=== PATIENT | female | born 1970 | race Caucasian/White ===

== ENCOUNTER 2021-01-03 22:57 | Emergency (ER) | payer BC, OTHER ==
[2021-01-03] MEDS ORDERED: morphine INJ 10 MG/ML 1ML (SYR OR VIAL) IM STA (23:30)
[2021-01-03] MEDS ORDERED: ONDANSETRON 4 MG (ZOFRAN) ORAL DISSOLVE TAB PO STA (23:30)
--- NOTE | 2021-01-03 23:57 | ED Cough/URI ---
General Chief Complaint: Cough/Cold/Flu Symptoms Stated Complaint: HEADACHE,SOA,COUGH,BODY ACHES Nursing Triage Note: Pt presents with a cough, fever, generalized body aches that started last Saturday. Pt states she was swabbed for Covid and it was negative. Pt was put on Zithromax and a steroid on and states she has finished both prescriptions and doesn't feel any better Source: patient History of Present Illness Date Seen by Provider: Jan 03, 2021 Time Seen by Provider: 23:15 Initial Comments Patient is a 50-year-old non-smoker presents with cough, fever, generalized body aches that started 1 week ago while [place] after close household exposure to Covid. Patient w was evaluated 5 days ago and had negative Covid test performed. She was placed on prednisone and Z-Pedro without improvement. Patient took pseudoephedrine this morning with some improvement. Patient reports persistent symptoms, dull throbbing headache, nausea with diarrhea. Denies chest pain palpitations or shortness of breath. Denies loss of taste or smell. No dizziness or lightheadedness. No other acute symptoms or complaints. Timing/Duration: week, changing over time Severity/Quality: dry cough Prior Episodes/Possible Cause: other Modifying Factors: Improves With Coughing, Improves With Lying Down Associated Symptoms: headache, muscle aches, nasal drainage, other Allergies and Home Medications Allergies Coded Allergies: No Known Drug Allergies (Unverified , 01/03/21) Patient Home Medication List Home Medication List Reviewed: Yes Review of Systems Review of Systems Constitutional: see HPI EENTM: see HPI Respiratory: see HPI Cardiovascular: see HPI Gastrointestinal: see HPI Genitourinary: see HPI Musculoskeletal: see HPI Skin: see HPI Psychiatric/Neurological: See HPI Hematologic/Lymphatic: See HPI Immunological/Allergic: see HPI All Other Systems Reviewed Negative Unless Noted: Yes Past Phobfly-Zlsyab-Uxiumc Hx Patient Social History Tobacco Use?: Yes Use of E-Cig and/or Vaping dev: No Substance use?: No Alcohol Use?: No Pt feels they are or have been: No Physical Exam Vital Signs - First Documented 01/03/21 23:02 Temp 37.8 Pulse 97 Resp 18 B/P (MAP) 97/51 (66) Pulse Ox 95 O2 Delivery Room Air Capillary Refill : Less Than 3 Seconds Height: '" Weight: lbs. oz. kg; BMI Method: General Appearance: moderate distress Eyes: Bilateral Eye Normal Inspection, Bilateral Eye PERRL, Bilateral Eye EOMI, Bilateral Eye Abnormal EOM, Bilateral Eye Abnormal Pupil HEENT: PERRL/EOMI, normal ENT inspection (Conjunctiva injected, rhinorrhea, nasal congestion), other Neck: full range of motion, supple Respiratory: lungs clear, no respiratory distress, rhonchi Cardiovascular: normal peripheral pulses, regular rate, rhythm Gastrointestinal: non tender, soft Extremities: normal range of motion, non-tender Neurologic/Psychiatric: computer training specialist II-XII nml as tested, no motor/sensory deficits, alert, oriented x 3 Skin: other Focused Exam Sepsis Stage: Ruled Out Progress/Results/Core Measures Suspected Sepsis SIRS Temperature: Pulse: 97 Respiratory Rate: 18 Blood Pressure 97 /51 Mean: 66 Results/Orders Lab Results Laboratory Tests Test 01/03/21 23:40 Range/Units My Orders Orders - JOHANA MARRERO DO Morphine Injection (Morphine Injection (01/03/21 23:30) Ondansetron Oral Dissolve Tab (Zofran (01/03/21 23:30) Influenza A And B Antigens (01/03/21 23:30) Coronavirus Sars-Cov-2 So 2018 (01/03/21 23:30) Vital Signs/I&O 01/03/21 23:02 Temp 37.8 Pulse 97 Resp 18 B/P (MAP) 97/51 (66) Pulse Ox 95 O2 Delivery Room Air Capillary Refill : Less Than 3 Seconds Blood Pressure Mean: 66 Departure Communication (Admissions) Acute viral syndrome most consistent with Covid without respiratory compromise. Covid and influenza swabs obtained. Morphine and Zofran given for relief of body aches. Patient instructed to self quarantine pending resolution of symptoms we will continue therapeutic and supportive care. Return precautions reviewed. Patient verbalizes understanding agreement discharge instructions prior to departure Impression Primary Impression: COVID-19 Disposition: 01 HOME, SELF-CARE Condition: Stable Departure-Patient Inst. Decision time for Depature: 23:57 Referrals: NO,LOCAL PHYSICIAN (PCP/Family) Primary Care Physician Patient Instructions: COVID-19 (DC) Add. Discharge Instructions: You were evaluated in the emergency department for Covid-like symptoms. Influenza test was obtained and was negative. Covid test was obtained and is pending. Please go home and self isolate, increase fluids and take hydrocodone and MucinexD for symptom control. Use albuterol inhaler as needed and monitor oxygen levels at night with digital monitor. Return to the ED if O2 saturations less than 90% or worsening symptoms. All discharge instructions reviewed with patient and/or family. Voiced understanding. Scripts Guaifenesin/Pseudoephedrne HCl (Mucinex D ER 1,200-120 mg Tab) 1 Each Tab.er.12h 1 EACH PO DAILY, #10 TAB Prov: JOHANA MARRERO DO 01/04/21 Hydrocodone/Acetaminophen (Hydrocodone-Acetamin 5-325 mg) 1 Each Tablet 1 TAB PO Q4H PRN for PAIN-MODERATE (5-7), #10 TAB Prov: JOHANA MARRERO DO 01/04/21 JOHANA MARRERO DO Jan 03, 2021 23:57
[2021-01-04] MEDS ORDERED: RT-ALBUINH IH
[2021-01-04] MEDS ORDERED: GUAI-365 PO (00:04)
[2021-01-04] MEDS ORDERED: ACHD5005 PO ×2 (00:04)
[2021-01-04 00:26] VITALS: BP 102/58
== END 2021-01-04 00:26 | disposition home or self-care (01) ==
LOC: EDUNIT# 22:57 → ER FS 22:59
DX: U07.1 COVID-19 (principal)
CPT/HCPCS: 87635; 87804

== ENCOUNTER 2021-01-07 11:01 | Inpatient (IN) | payer BC ==
[~2021-01-07] VITALS: Ht 162.6 cm; Wt 90.0 kg
[~2021-01-07 11:01] MED LIST: ACHD5005 PO; GUAI-365 PO; RT-ALBUINH IH
[2021-01-07] MEDS ORDERED: NS IV ONE (11:15)
[2021-01-07 11:26] LABS: BASOPHILS % (AUTO) 0 % (0-10); EOSINOPHILS % (AUTO) 0 % (0-10); HEMATOCRIT 44 % (35-52); LYMPHOCYTES # (AUTO) 1.6 X 10^3 (1.0-4.0); LYMPHOCYTES % (AUTO) 21 % (12-44); MEAN CORPUSCULAR HEMOGLOBIN 29 PG (25-34); MEAN CORPUSCULAR HGB CONC 34 G/DL (32-36); MEAN CORPUSCULAR VOLUME 86 FL (80-99); MEAN PLATELET VOLUME 9.1 FL (7.4-10.4); MONOCYTES # (AUTO) 0.4 X 10^3 (0.0-1.0); MONOCYTES % (AUTO) 5 % (0-12); NEUTROPHILS # (AUTO) 5.6 X 10^3 (1.8-7.8); NEUTROPHILS % (AUTO) 73 % (42-75); PLATELET COUNT 300 10^3/uL (130-400); WHITE BLOOD COUNT 7.7 10^3/uL (4.3-11.0)
[2021-01-07 11:29] LABS: ABG BASE EXCESS -1.2 MMOL/L (-2.5-2.5); ABG OXYGEN SATURATION 93 % (94-100); ABG PCO2 20 MMHG (35-45); ABG PH 7.58 (7.37-7.43); ABG PO2 55 MMHG (79-93); ABG TCO2 19.4 MMOL/L (21.0-31.0); ALLENS TEST NEGATIVE; INSPIRED O2 2; PATIENT TEMP 97.3; VENTILATOR NO
[2021-01-07 11:35] LABS: PROTHROMBIN TIME PATIENT 12.2 SEC (12.2-14.7)
[2021-01-07 11:36] LABS: INR 0.9 (0.8-1.4)
--- NOTE | 2021-01-07 11:42 | ED Respiratory ---
General Chief Complaint: Respiratory Problems Stated Complaint: COVID + | SOB Source: patient Exam Limitations: no limitations History of Present Illness Date Seen by Provider: Jan 07, 2021 Time Seen by Provider: 11:00 Initial Comments Patient is a 50-year-old female first diagnosed and tested for Covid 2 weeks ago who presents with increasing difficulty breathing. Patient was evaluated in this emergency department 4 days ago for the same. She has had persistent body aches, shortness of breath cough generalized weakness and fatigue. She has been monitor oxygen levels at home which range from from 85% to exertion to 90% resting on room air. She was subsequently evaluated at [place] emergency department yesterday reportedly had a CTA negative for pulmonary embolus. She is currently taking Z-Pedro and prednisone. She states she was diagnosed with pneumonia in [place] but no new antibiotics or medications were prescribed. Patient symptoms of steadily worsened overnight she is visibly dyspneic with upper stational dyspnea on exam. Severity: moderate Prior Episodes/Possible Cause: other Modifying Factors: Improves With Other Associated Symptoms: other Allergies and Home Medications Allergies Coded Allergies: No Known Drug Allergies (Unverified , 01/03/21) Home Medications Guaifenesin/Pseudoephedrne HCl 1 Each Tab.er.12h, 1 EACH PO DAILY Prescribed by: JOHANA MARRERO on 01/04/21 0005 Hydrocodone/Acetaminophen 1 Each Tablet, 1 TAB PO Q4H PRN for PAIN-MODERATE (5- 7) Prescribed by: JOHANA MARRERO on 01/04/21 0005 Patient Home Medication List Home Medication List Reviewed: Yes Review of Systems Review of Systems Constitutional: see HPI EENTM: see HPI Respiratory: see HPI Cardiovascular: see HPI Gastrointestinal: see HPI Genitourinary: see HPI Musculoskeletal: see HPI Skin: see HPI Psychiatric/Neurological: See HPI Hematologic/Lymphatic: See HPI Immunological/Allergic: see HPI All Other Systems Reviewed Negative Unless Noted: Yes Physical Exam Capillary Refill : Height: '" Weight: lbs. oz. kg; BMI Method: General Appearance: moderate distress Eyes: Bilateral Eye Normal Inspection, Bilateral Eye PERRL, Bilateral Eye EOMI HEENT: PERRL/EOMI, TMs normal, pharynx normal, other (Conjunctiva injected) Neck: non-tender, full range of motion, supple Respiratory: decreased breath sounds, rhonchi, other (Tachypneic, mild re spiratory distress) Cardiovascular: normal peripheral pulses, tachycardia Gastrointestinal: normal bowel sounds, non tender, soft Extremities: normal range of motion, non-tender Neurologic/Psychiatric: size maker II-XII nml as tested, no motor/sensory deficits, alert, oriented x 3 Skin: normal color Focused Exam Sepsis Stage: Sepsis Lactate Level 01/07/21 11:20: Lactic Acid Level Laboratory Tests Test 01/07/21 11:20 Progress/Results/Core Measures Suspected Sepsis SIRS Temperature: Pulse: Respiratory Rate: Laboratory Tests 01/07/21 11:20: White Blood Count 7.7 Blood Pressure / Mean: 01/07/21 11:20: Laboratory Tests 01/07/21 11:20: INR Comment 0.9, Platelet Count 300 Results/Orders Lab Results Laboratory Tests Test 01/07/21 11:20 Range/Units White Blood Count 7.7 4.3-11.0 10^3/uL Red Blood Count 5.12 4.35-5.85 10^6/uL Hemoglobin 15.0 11.5-16.0 G/DL Hematocrit 44 35-52 % Mean Corpuscular Volume 86 80-99 FL Mean Corpuscular Hemoglobin 29 25-34 PG Mean Corpuscular Hemoglobin Concent 34 32-36 G/DL Red Cell Distribution Width 13.2 10.0-14.5 % Platelet Count 300 130-400 10^3/uL Mean Platelet Volume 9.1 7.4-10.4 FL Immature Granulocyte % (Auto) 1 % Neutrophils (%) (Auto) 73 42-75 % Lymphocytes (%) (Auto) 21 12-44 % Monocytes (%) (Auto) 5 0-12 % Eosinophils (%) (Auto) 0 0-10 % Basophils (%) (Auto) 0 0-10 % Neutrophils # (Auto) 5.6 1.8-7.8 X 10^3 Lymphocytes # (Auto) 1.6 1.0-4.0 X 10^3 Monocytes # (Auto) 0.4 0.0-1.0 X 10^3 Eosinophils # (Auto) 0.0 0.0-0.3 10^3/uL Basophils # (Auto) 0.0 0.0-0.1 10^3/uL Immature Granulocyte # (Auto) 0.1 0.0-0.1 10^3/uL Prothrombin Time 12.2 12.2-14.7 SEC INR Comment 0.9 0.8-1.4 Activated Partial Thromboplast Time 23 L 24-35 SEC Blood Gas Puncture Site RIGHT WRIST Blood Gas Patient Temperature 97.3 Arterial Blood pH 7.58 H 7.37-7.43 Arterial Blood Partial Pressure CO2 20 L 35-45 MMHG Arterial Blood Partial Pressure O2 55 L 79-93 MMHG Arterial Blood HCO3 19 L 23-27 MMOL/L Arterial Blood Total CO2 19.4 L 21.0-31.0 MMOL/L Arterial Blood Oxygen Saturation 93 L 94-100 % Arterial Blood Base Excess -1.2 -2.5-2.5 MMOL/L Brandan Test NEGATIVE Blood Gas Ventilator Setting NO Blood Gas Inspired Oxygen 2 My Orders Orders - JOHANA MARRERO DO Cbc With Automated Diff (01/07/21 11:10) Comprehensive Metabolic Panel (01/07/21 11:10) Blood Culture (01/07/21 11:10) Urinalysis (01/07/21 11:10) Urine Culture (01/07/21 11:10) Protime With Inr (01/07/21 11:10) Partial Thromboplastin Time (01/07/21 11:10) Chest 1 View Ap/Pa Only (01/07/21 11:10) Ed Iv/Invasive Line Start (01/07/21 11:10) Ed Iv/Invasive Line Start (01/07/21 11:10) Ekg Tracing (01/07/21 11:10) Vital Signs Adult Sepsis Patie Q15M (01/07/21 11:10) O2 (01/07/21 11:10) Remove Rings In Anticipation O (01/07/21 11:10) Lactic Acid Analyzer (01/07/21 11:10) Ns Iv 1000 Ml (Sodium Chloride 0.9%) (01/07/21 11:15) Arterial Blood Gas (01/07/21 11:10) Crp Fs (01/07/21 11:10) Probnp Fs (01/07/21 11:10) Troponin I Fs (01/07/21 11:10) Medications Given in ED Current Medications Medications Dose Ordered Sig/Marian Route Start Time Stop Time Status Last Admin Dose Admin Sodium Chloride 2,760 ml @ 2,760 mls/hr ONCE ONCE IV 01/07/21 11:15 01/07/21 12:14 01/07/21 11:30 2,760 MLS/HR Vital Signs/I&O Capillary Refill : Departure Departure-Patient Inst. Referrals: NO,LOCAL PHYSICIAN (PCP/Family) Primary Care Physician JOHANA MARRERO DO Jan 07, 2021 11:42
[2021-01-07 11:45] LABS: BUN/CREATININE RATIO 29; CARBON DIOXIDE 19 MMOL/L (21-32); CHLORIDE 102 MMOL/L (98-107); CREATININE SERUM 0.62 MG/DL (0.60-1.30); GFR ESTIMATED 101; POTASSIUM 3.8 MMOL/L (3.6-5.0); SODIUM 136 MMOL/L (135-145)
[2021-01-07 11:46] LABS: ALANINE AMINOTRANSFERASE 43 U/L (0-55); ALBUMIN 4.4 GM/DL (3.2-4.5); ALKALINE PHOSPHATASE 81 U/L (40-136); BILIRUBIN,TOTAL 0.6 MG/DL (0.1-1.0); CALCIUM 9.5 MG/DL (8.5-10.1); GLUCOSE 124 MG/DL (70-105); TOTAL PROTEIN 7.6 GM/DL (6.4-8.2)
--- NOTE | 2021-01-07 11:57 | Diagnostic Imaging Report ---
INDICATION: Covid positive. Sepsis. Shortness of breath. FINDINGS: There are likely chronic interstitial changes present within the lungs. There also appear to be some superimposed alveolar infiltrates at the left lung base. There is no large effusion. There is no pneumothorax. Heart size is appropriate. Pulmonary vascularity appears normal. IMPRESSION: Patchy alveolar infiltrates in the left lung base. The findings appear to be superimposed on what are likely chronic interstitial changes within the lungs. Dictated by: Dictated on workstation # [id number]
[2021-01-07] MEDS ORDERED: RX-ALBUTEROL INHALER (VENTOLIN HFA) 18 GM IH STA (12:02)
[2021-01-07 14:07] VITALS: BP 137/68
[2021-01-07] MEDS ORDERED: NS IV 1000 ML 1,000 ML ONE (14:09)
[2021-01-07] MEDS ORDERED: NS IV 1000 ML 1,000 ML IV SCH (14:30)
[2021-01-07 15:27] VITALS: BP 130/84
[2021-01-07] MEDS ORDERED: polyethylene glycoL POWDER 17 GM (MIRALAX) PACK PO PRN (17:15)
[2021-01-07] MEDS ORDERED: guaiFENesin/DM (ROBITUSSIN DM) 10 ML UDC PO PRN (17:15)
[2021-01-07] MEDS ORDERED: ONDANSETRON 4 MG/2 ML (SDV) Z0FRAN IV PRN (17:15)
[2021-01-07] MEDS ORDERED: LOPERAMIDE 2 MG (IMODIUM) TABLET PO PRN (17:15)
[2021-01-07] MEDS ORDERED: BISACODYL 10 MG SUPP (DULCOLAX) PR PRN (17:15)
[2021-01-07] MEDS ORDERED: diphenhydrAMINE 25 MG TAB (BENADRYL) PO PRN (17:15)
[2021-01-07] MEDS ORDERED: ONDANSETRON 4 MG (ZOFRAN) ORAL DISSOLVE TAB PO PRN (17:15)
[2021-01-07] MEDS ORDERED: ANTACID SUSP 30 ML UDC (MYLANTA) PO PRN (17:15)
[2021-01-07] MEDS ORDERED: ALPRAZolam 0.25 MG (XANAX) TAB PO PRN (17:15)
[2021-01-07] MEDS ORDERED: MELATONIN 3 MG TABLET PO PRN (17:15)
[2021-01-07] MEDS: ACETAMINOPHEN 325 MG TABLET PO PRN (17:46)
[2021-01-07] MEDS ORDERED: RT-ALBUTEROL INHALER HFA (VENTOLIN HFA) 18 GM IH SCH (18:00)
[2021-01-07 20:04] VITALS: BP 114/76
[2021-01-07] MEDS: DOCUSATE SODIUM 100 MG (COLACE) CAP PO SCH (20:22)
[2021-01-07] MEDS: SENNOSIDES 8.6 MG (SENOKOT) TAB PO SCH (20:22)
[2021-01-07] MEDS: guaiFENesin (MUCINEX) 600 MG TAB PO SCH (20:22)
[2021-01-07] MEDS: ENOXAPARIN 40 MG/0.4 ML (LOVENOX) SYR SC SCH (20:22)
[2021-01-07] MEDS: RT-ALBUTEROL INHALER HFA (VENTOLIN HFA) 18 GM IH SCH (20:23)
[2021-01-07] MEDS: inSUlin ASPART (NovoLOG) 1 UNIT/0.01 ML (CHARGE PER UNIT) SC SCH (20:40)
[2021-01-08] VITALS (7 sets, daily range): BP systolic 112–120; BP diastolic 67–78
[2021-01-08] MEDS: RT-ALBUTEROL INHALER HFA (VENTOLIN HFA) 18 GM IH SCH ×4 (01:50→21:12)
[2021-01-08] MEDS: ACETAMINOPHEN 325 MG TABLET PO PRN ×3 (02:13→18:10)
[2021-01-08] MEDS: inSUlin ASPART (NovoLOG) 1 UNIT/0.01 ML (CHARGE PER UNIT) SC SCH ×4 (05:11→20:43)
[2021-01-08] MEDS: dexAMETHasone 6 MG TAB (DECADRON) PO SCH (06:04)
[2021-01-08 08:09] LABS: BASOPHILS % (AUTO) 0 % (0-10); EOSINOPHILS % (AUTO) 0 % (0-10); HEMATOCRIT 39 % (35-52); HEMOGLOBIN 12.7 g/dL (11.5-16.0); LYMPHOCYTES # (AUTO) 1.3 10^3/uL (1.0-4.0); LYMPHOCYTES % (AUTO) 20 % (12-44); MEAN CORPUSCULAR HEMOGLOBIN 29 pg (25-34); MEAN CORPUSCULAR HGB CONC 32 g/dL (32-36); MEAN CORPUSCULAR VOLUME 89 fL (80-99); MEAN PLATELET VOLUME 9.1 fL (9.0-12.2); MONOCYTES # (AUTO) 0.4 10^3/uL (0.0-1.0); MONOCYTES % (AUTO) 6 % (0-12); NEUTROPHILS # (AUTO) 4.7 10^3/uL (1.8-7.8); NEUTROPHILS % (AUTO) 73 % (42-75); PLATELET COUNT 223 10^3/uL (130-400); WHITE BLOOD COUNT 6.5 10^3/uL (4.3-11.0)
[2021-01-08 08:19] LABS: ALBUMIN 3.7 GM/DL (3.2-4.5); POTASSIUM 3.6 MMOL/L (3.6-5.0)
[2021-01-08 08:21] LABS: CALCIUM 8.2 MG/DL (8.5-10.1)
[2021-01-08 08:22] LABS: TOTAL PROTEIN 6.4 GM/DL (6.4-8.2)
[2021-01-08 08:23] LABS: BILIRUBIN,TOTAL 0.4 MG/DL (0.1-1.0)
[2021-01-08 08:25] LABS: CREATININE SERUM 0.61 MG/DL (0.60-1.30)
[2021-01-08] MEDS: guaiFENesin (MUCINEX) 600 MG TAB PO SCH ×2 (09:14→21:33)
[2021-01-08] MEDS: SENNOSIDES 8.6 MG (SENOKOT) TAB PO SCH ×2 (09:14→21:33)
[2021-01-08] MEDS: DOCUSATE SODIUM 100 MG (COLACE) CAP PO SCH ×2 (09:14→21:33)
--- NOTE | 2021-01-08 11:28 | History & Physical-Hospitalist ---
History of Present Illness HPI/Chief Complaint Karissa Duncan is a 50-year-old female with no past medical history presented with shortness of breath. She has been sick for almost 2 weeks. She says that she was in [place] when she first started getting sick. She went to an urgent care on 12/28 and tested negative for Covid at that time. She flew back home and continued to get worse and was evaluated again and found to have Covid. She was having fevers. She has had a cough which persists. She is having brown sputum production. He is not having chest pain. She had body aches which have resolved. She continues to have headaches. She denies nausea and vomiting. She denies abdominal pain. She had diarrhea which is resolved. She reports that she is just getting short of breath and dizzy with activity. Source: patient Exam Limitations: no limitations Date Seen 01/08/21 Time Seen by a Provider: 10:30 Attending Physician Judith Monahan MD PCP No,Local Physician Referring Physician Date of Admission Jan 07, 2021 at 14:00 Home Medications & Allergies Home Medications Reviewed patient Home Medication Reconciliation performed by pharmacy medication reconciliations transport technician and/or nursing. Patients Allergies have been reviewed. Allergies Allergies Coded Allergies No Known Drug Allergies (Unverified01/03/21) Past Bjtmfzj-Frouvs-Mxabdu Hx Patient Social History Tobacco Use?: No Smoking Status: Never a Smoker Use of E-Cig and/or Vaping dev: No Substance use?: No Alcohol Use?: Yes Alcohol type: Beer Alcohol Frequency: Once in a while Pt feels they are or have been: No Immunizations Up To Date First/Initial COVID19 Vaccinat: NOT VACCINATED Second COVID19 Vaccination Zhou: NOT VACCINATED Tetanus Booster (TDap): Unknown Current Status status: No Advance Directives: No Communicates: Verbally Primary Language: Portuguese Preferred Spoken Language: Portuguese Is interpretation needed?: No Implanted or Applied Medical D: None Family Medical History No Pertinent Family Hx Review of Systems Constitutional: dizziness EENTM: no symptoms reported Respiratory: cough, phlegm, short of breath Cardiovascular: no symptoms reported Gastrointestinal: no symptoms reported Genitourinary: no symptoms reported Musculoskeletal: no symptoms reported Skin: no symptoms reported Psychiatric/Neurological: No Symptoms Reported Physical Exam Physical Exam Vital Signs Vital Signs - First Documented 01/07/21 01/07/21 01/07/21 11:10 13:10 16:18 Temp 36.2 Pulse 84 Resp 26 B/P (MAP) 123/84 (97) Pulse Ox 95 O2 Delivery Nasal Cannula O2 Flow Rate 2.00 FiO2 2 Capillary Refill : Less Than 3 Seconds Height, Weight, BMI Height: '" Weight: lbs. oz. kg; 34.04 BMI Method: General Appearance: No Apparent Distress, Anxious, Obese HEENT: PERRL/EOMI, Pharynx Normal Neck: Normal Inspection, Supple Respiratory: No Respiratory Distress, Wheezing Cardiovascular: Regular Rate, Rhythm, No Edema, No Murmur Gastrointestinal: Normal Bowel Sounds, Non Tender, Soft Extremity: Normal Inspection, Non Tender, No Pedal Edema Neurologic/Psychiatric: Alert, Oriented x3, No Motor/Sensory Deficits, Normal Mood/Affect Skin: Normal Color, Warm/Dry Results Results/Procedures Labs Laboratory Tests 01/07/21 11:20 01/08/21 07:53 Patient resulted labs reviewed. Imaging: Reviewed Imaging Report Assessment/Plan Admission Diagnosis Acute respiratory failure due to COVID-19 Admission Status: Inpatient Order (span 2 midnights) Reason for Inpatient Admission: Respiratory failure Assessment and Plan Acute respiratory failure due to COVID-19 Covid positive at outside facility, symptoms started nearly 2 weeks ago Chest xray with patchy infiltrates bilaterally Continue Decadron Outside of window for Remdesivir Convalescent plasma discussed, holding off at this time Procalcitonin normal, antibiotics not recommended D-dimer mildly elevated CTA at [place] 01/04 negative per ER Prophylactic Lovenox Oxygen study tomorrow morning Likely discharge home with oxygen tomorrow Elevated LFTs Mildly elevated Likely due to COVID Monitor Obesity Clinically significant, no acute management needs DVT prophylaxis: Lovenox Diagnosis/Problems Diagnosis/Problems (1) Acute respiratory failure due to COVID-19 Status: Acute (2) Elevated LFTs Status: Acute (3) Obesity Status: Chronic JUDITH MONAHAN MD Jan 08, 2021 11:28
[2021-01-08] MEDS: ENOXAPARIN 40 MG/0.4 ML (LOVENOX) SYR SC SCH (21:33)
[2021-01-09] MEDS: RT-ALBUTEROL INHALER HFA (VENTOLIN HFA) 18 GM IH SCH ×2 (02:30→07:39)
[2021-01-09 03:28] VITALS: BP 115/82
[2021-01-09] MEDS: inSUlin ASPART (NovoLOG) 1 UNIT/0.01 ML (CHARGE PER UNIT) SC SCH ×2 (05:16→11:00)
[2021-01-09] MEDS: dexAMETHasone 6 MG TAB (DECADRON) PO SCH (06:27)
[2021-01-09 07:07] LABS: ALBUMIN 3.8 GM/DL (3.2-4.5); POTASSIUM 3.6 MMOL/L (3.6-5.0)
[2021-01-09 07:08] LABS: CALCIUM 8.5 MG/DL (8.5-10.1)
[2021-01-09 07:10] LABS: TOTAL PROTEIN 6.6 GM/DL (6.4-8.2)
[2021-01-09 07:11] LABS: BILIRUBIN,TOTAL 0.4 MG/DL (0.1-1.0)
[2021-01-09 07:13] LABS: CREATININE SERUM 0.64 MG/DL (0.60-1.30)
[2021-01-09 08:16] VITALS: BP 101/58
[2021-01-09] MEDS: SENNOSIDES 8.6 MG (SENOKOT) TAB PO SCH (08:23)
[2021-01-09] MEDS: DOCUSATE SODIUM 100 MG (COLACE) CAP PO SCH (08:24)
[2021-01-09] MEDS: guaiFENesin (MUCINEX) 600 MG TAB PO SCH (08:24)
--- NOTE | 2021-01-09 11:07 | Discharge Inst-Simple/Standard ---
Discharge Inst-Standard Discharge Medications New, Converted or Re-Newed RX: Transmitted to Pharmacy Patient Instructions/Follow Up Plan of Care/Instructions/FU: Please continue to take your medications as written. Please follow up with your primary care doctor to follow up this hospital stay. Activity as Tolerated: Yes Discharge Diet: No Restrictions Return to The Hospital For: Chest pain, shortness of breath, weakness, confusion, fever, low oxygen saturations, if you feel you are getting worse. KEE CHARLES MD Jan 09, 2021 11:07
--- NOTE | 2021-01-09 11:09 | Discharge Summary ---
Diagnosis/Chief Complaint Date of Admission Jan 07, 2021 at 14:00 Date of Discharge Discharge Date: Jan 09, 2021 Admission Diagnosis Acute respiratory failure due to COVID-19 Primary Care No,Local Physician Discharge Diagnosis (1) Acute respiratory failure due to COVID-19 Status: Acute (2) Elevated LFTs Status: Acute (3) Obesity Status: Chronic Discharge Summary Discharge Physical Exam Allergies: Coded Allergies: No Known Drug Allergies (Unverified , 01/03/21) Vitals & I&Os Vital Signs Date Time Temp Pulse Resp B/P (MAP) Pulse Ox O2 Delivery O2 Flow Rate FiO2 01/09/21 12:58 36.9 68 18 104/69 95 Nasal Cannula 2.00 01/08/21 15:17 50 General Appearance: No Apparent Distress, WD/WN Respiratory: Lungs Clear, No Respiratory Distress Cardiovascular: Regular Rate, Rhythm, No Murmur Neurologic/Psychiatric: Alert, Oriented x3 Hospital Course patient was admitted with acute hypoxic respiratory failure due to COVID-19. She was treated with Decadron but was outside of the window for Remdesivir. She did well and was able to be titrated down to 2lpm of oxygen. She was discharged home in stable and improved condition to follow-up with her primary care provider. Encouraged vaccination as soon as she was out of isolation and offered pulmonology follow up but she declined. Labs (last 24 hrs) Laboratory Tests 01/08/21 15:58: Glucometer 151H 01/08/21 20:42: Glucometer 112H 01/09/21 05:15: Glucometer 96 01/09/21 06:25: Sodium Level 142, Potassium Level 3.6, Chloride Level 109H, Carbon Dioxide Level 19L, Anion Gap 14, Blood Urea Nitrogen 15, Creatinine 0.64, Estimat Glomerular Filtration Rate 98, BUN/Creatinine Ratio 23, Glucose Level 90, Calcium Level 8.5, Corrected Calcium 8.7, Total Bilirubin 0.4, Aspartate Amino Transf (AST/SGOT) 30, Alanine Aminotransferase (ALT/SGPT) 74H, Alkaline Phosphatase 63, Total Protein 6.6, Albumin 3.8 01/09/21 11:11: Glucometer 136H Microbiology 01/07/21 Blood Culture - Preliminary, Resulted No growth Patient resulted labs reviewed. Pending Labs Laboratory Tests 01/09/21 06:25: Sodium Level 142, Potassium Level 3.6, Chloride Level 109, Carbon Dioxide Level 19, Anion Gap 14, Blood Urea Nitrogen 15, Creatinine 0.64, Estimat Glomerular Filtration Rate 98, BUN/Creatinine Ratio 23, Glucose Level 90, Calcium Level 8.5, Corrected Calcium 8.7, Total Bilirubin 0.4, Aspartate Amino Transf (AST/SGOT) 30, Alanine Aminotransferase (ALT/SGPT) 74, Alkaline Phosphatase 63, Total Protein 6.6, Albumin 3.8 01/09/21 11:11: Glucometer 136 Imaging: Reviewed Imaging Report Discussion & Recommendations Discharge Planning: >30 minutes discharge planning Discharge Home Medications: Active Scripts Active Mucinex D ER 1,200-120 mg Tab (Guaifenesin/Pseudoephedrne HCl) 1 Each Tab.er.12h 1 Each PO DAILY Hydrocodone-Acetamin 5-325 mg (Hydrocodone/Acetaminophen) 1 Each Tablet 1 Tab PO Q4H PRN Instructions to patient/family Please see electronic discharge instructions given to patient. KEE CHARLES MD Jan 09, 2021 11:09
[2021-01-09 12:03] VITALS: BP 104/69
[2021-01-09 12:58] VITALS: BP 104/69
== END 2021-01-09 12:45 | disposition home or self-care (01) | DRG 177 ==
LOC: EDUNIT# 11:01 → ER FS 11:04 → 4TH 14:00
PROVIDERS: ADMIT Internal Medicine; ATTEND Internal Medicine
DX: U07.1 COVID-19 (principal); J96.00 Acute respiratory failure, unspecified whether with hypoxia or hypercapnia; E66.9 Obesity, unspecified; Z68.34 Body mass index [BMI] 34.0-34.9, adult; Z73.0 Burn-out
CPT/HCPCS: 36415; 71045; 80053; 82805; 82947; 83605; 83880; 84145; 84484; 85025; 85379; 85610; 85730; 86141; 87040; 93005; 94640; 94760; 94761; 96361; 96374